=== PATIENT | male | born 1970 | race Caucasian/White ===

== ENCOUNTER → 2018-12-13 12:02 | Outpatient (CLI) | payer OTHER, SELFPAY ==
[2018-12-13 13:27] LABS: Alanine Aminotransferase 62 IU/L (21-72); Albumin 4.6 g/dL (3.5-5.0); Albumin Globulin Ratio 1.4 (1.0-2.8); Alkaline Phosphatase 95 U/L (38-126); Aspartate Aminotransferase 35 IU/L (17-59); BUN Creatinine Ratio 11.8 (6-22); Bilirubin Total 0.3 mg/dL (0.2-1.3); Blood Urea Nitrogen 13 mg/dL (9-20); Calcium 9.3 mg/dL (8.4-10.2); Carbon Dioxide 28 mmol/L (22-32); Chloride 101 mmol/L (98-107); Estimated Glomerular Filt Rate > 60.0 mL/min (>60); Globulin 3.2 g/dL (1.7-4.1); Glucose 85 mg/dL (70-100); HEMOLYSIS 18 (0-50); Potassium 4.8 mmol/L (3.4-5.1); Sodium 139 mmol/L (137-145); Total Protein 7.8 g/dL (6.3-8.2)
[2018-12-13 13:56] LABS: Thyroid Stimulating Hormone 1.13 uIU/mL (0.47-4.68)
== END ==
PROVIDERS: PCP Internal Medicine; Visit Provider Internal Medicine
DX: E29.1 Testicular hypofunction (principal); I10 Essential (primary) hypertension
CPT/HCPCS: 36415; 80053; 84439; 84443

== ENCOUNTER → 2020-06-11 10:28 | Outpatient (CLI) | payer OTHER, SELFPAY ==
[2020-06-11 11:45] LABS: 585 Gram Check PAS; Dizziness NO; Postdiastolic BP 98; Postsystolic BP 156; Prediastolic 108; Presystolic 193; Pulse 89; Site of phlebotomy RAC; Swelling NO; Therapeutic Phleb Comment NO COMMENT; Zero Check Sebra Scale PASS
== END ==
PROVIDERS: PCP Internal Medicine; Referring Provider General Practice; Visit Provider General Practice
DX: D75.1 Secondary polycythemia (principal)
CPT/HCPCS: 99195

== ENCOUNTER → 2020-06-25 10:22 | Outpatient (CLI) | payer OTHER, SELFPAY ==
[2020-06-25 10:52] LABS: 585 Gram Check PASS; Dizziness NO; Postdiastolic BP 105; Postsystolic BP 186; Prediastolic 94; Presystolic 165; Pulse 96; Site of phlebotomy RAC; Swelling NO; Therapeutic Phleb Comment NO COMMENT; Zero Check Sebra Scale PASS
== END ==
PROVIDERS: PCP Internal Medicine; Referring Provider General Practice; Visit Provider General Practice
DX: D75.1 Secondary polycythemia (principal)
CPT/HCPCS: 99195

== ENCOUNTER → 2021-01-08 09:36 | Outpatient (CLI) | payer OTHER, SELFPAY ==
[2021-01-08 10:09] LABS: 585 Gram Check PASS; Dizziness NO; Postdiastolic BP 100; Postsystolic BP 184; Prediastolic 112; Presystolic 174; Pulse 82; Site of phlebotomy RAC; Swelling NO; Therapeutic Phleb Comment NO COMMENT; Zero Check Sebra Scale PASS
== END ==
PROVIDERS: PCP Internal Medicine; Referring Provider General Practice; Visit Provider General Practice
DX: D75.1 Secondary polycythemia (principal)
CPT/HCPCS: 99195

== ENCOUNTER → 2021-02-05 09:58 | Outpatient (CLI) | payer OTHER, SELFPAY ==
[2021-02-05 10:28] LABS: 585 Gram Check PASS; Dizziness NO; Postdiastolic BP 88; Postsystolic BP 138; Prediastolic 90; Presystolic 137; Pulse 95; Site of phlebotomy LAC; Swelling NO; Therapeutic Phleb Comment NO COMMENT; Zero Check Sebra Scale PASS
== END ==
PROVIDERS: PCP Internal Medicine; Referring Provider General Practice; Visit Provider General Practice
DX: D75.1 Secondary polycythemia (principal)
CPT/HCPCS: 99195

== ENCOUNTER → 2021-02-12 12:35 | Outpatient (CLI) | payer OTHER, SELFPAY ==
[2021-02-12] MEDS: COVID-19 VACC #2, MRNA(MOD) 100 MCG/0.5 ML VIAL IM (12:46)
== END ==
PROVIDERS: PCP Internal Medicine; Visit Provider Internal Medicine
DX: Z23 Encounter for immunization (principal)
CPT/HCPCS: 0012A; 91301

== ENCOUNTER 2021-05-21 20:03 | Emergency (ER) | payer OTHER, SELFPAY ==
[2021-05-21 20:10] VITALS: BP 157/102; PULSE 90; RESP 14; TEMP 36.8; O2SAT 96; BMI 34.7
--- NOTE | 2021-05-21 20:13 | DI.RAD.S_ITS ---
PROCEDURE: XR KNEE LT 3V INDICATIONS: twisted knee and felt pop, now with pain. TECHNIQUE: Three views of the knee were acquired. COMPARISON: None. FINDINGS: Bones: No fractures or dislocations. No suspicious bony lesions. Soft tissues: No joint effusion. No suspicious soft tissue calcifications. IMPRESSION: Intact left knee. Dictated by: Capri Hand M.D. on 05/21/2021 at 20:35 Approved by: Capri Hand M.D. on 05/21/2021 at 20:35
[2021-05-21 21:00] VITALS: PULSE 78; O2SAT 97
[2021-05-21 21:02] VITALS: BP 166/92; PULSE 80; O2SAT 97
--- NOTE | 2021-05-21 21:18 | ED.LOWEXIN ---
HPI - Extremity Injury (Lower) General Chief Complaint: Extremity Injury, Lower Stated Complaint: LEFT KNEE INJURY Time Seen by Provider: 05/21/21 20:57 Source: patient Mode of arrival: Wheelchair Limitations: no limitations History of Present Illness HPI Narrative: Patient is a 50-year-old male who was participating in [employer] earlier today. He states that he was sparring with another individual in during the position that he was in had a sudden onset of a pain in the outside of his left knee. He states that he felt and heard a popping sensation. Since that time he has had quite a bit of discomfort the outside of his knee. No prior injuries. Has had difficulty/inability to ambulate since that time. Related Data Previous Rx's Medication Instructions Recorded TESTOSTERONE CYPIONATE (#COLTON-C) 200 mg IM EVERY 14 DAY #1 bot 08/30/12 sertraline 100 mg tablet 100 mg PO QDAY #90 tab 12/13/18 tadalafil 5 mg tablet (Cialis) 5 mg PO DAILY #90 tab 05/04/21 Allergies Allergy/AdvReac Type Severity Reaction Status Date / Time No Known Drug Allergies Allergy Verified 05/04/21 14:12 Review of Systems Constitutional Constitutional: Denies fever(s) Cardiovascular Cardiovascular: Reports system reviewed and no additional complaints, except as documented Respiratory Respiratory: Reports system reviewed and no additional complaints, except as documented Gastrointestinal Gastrointestinal: Reports system reviewed and no additional complaints, except as documented Musculoskeletal Musculoskeletal: Reports as per HPI Integumentary/Breasts Skin/Breast: Reports system reviewed and no additional complaints, except as documented Neurologic Neurologic: Reports system reviewed and no additional complaints, except as documented Hematologic/Lymphatic On Anticoagulants: No Allergic/Immunologic Allergic/Immunologic: Reports system reviewed and no additional complaints, except as documented Patient History Medical History BPH w urinary obs/LUTS Depression (10/01/15) Hypogonadism in male (10/01/15) Microscopic hematuria Surgical History History of circumcision Status post appendectomy Family History Father Hearing impairment Social History marital status: number of children: 1 occupational status: employed Smoking Status: Never smoker alcohol intake: current caffeine: Yes Smoking Status: Never smoker alcohol intake frequency: a few times a month Substance Use Type: does not use Exam Initial Vital Signs Initial Vital Signs: Vital Signs Temperature 98.2 F 05/21/21 20:10 Pulse Rate 90 05/21/21 20:10 Respiratory Rate 14 05/21/21 20:10 Blood Pressure 157/102 H 05/21/21 20:10 Pulse Oximetry 96 05/21/21 20:10 Const General: cooperative and healthy appearing [facility] Head: normal to inspection and normocephalic Resp Effort & Inspection: normal respiratory effort Cardio Rate: regular rate Skin General: no rashes or lesions noted Neuro General: patient alert and patient awake Sensory Exam: no sensory deficits noted Extrem Other: Left hip left ankle and left foot unremarkable. Patient has tenderness to palpation along the lateral aspect of the left knee. No tenderness along the medial joint line. No tenderness along the hamstring tendon. Patient can do a straight leg raise. No tenderness along the quadriceps/patella tendon. His ACL MCL PCL and LCL are all intact with functional testing however he does seem to be guarding quite a bit. Psych Appearance: grossly normal and well kempt Procedures Orthopedic Splinting/Casting Injury #1: Side: left Lower Extremity Injury Location: knee Lower Extremity Immobilizer: knee immobilizer Other Orthopedic Equipment: crutches Post splinting neuro exam: intact Post splinting vascular exam: intact Placed by: Nursing Course Orders Ordered: ED Orders 05/21/21 20:13 XR knee LT 3V Stat Discontinued Medications Hydrocodone Bitart/Acetaminophen (Hydrocodone/Acet 5/325 Tablet) 1 tab PO NOW ONE Stop: 05/21/21 21:32 Last Admin: 05/21/21 21:35 Dose: 1 tab Documented by: ADIS Vital Signs Vital signs: Vital Signs - 8 hr 05/21/21 20:10 05/21/21 21:00 05/21/21 21:02 Temperature 98.2 F Pulse Rate 90 78 80 Respiratory Rate 14 Blood Pressure 157/102 H 166/92 H Pulse Oximetry 96 97 97 05/21/21 21:30 05/21/21 21:31 Temperature Pulse Rate 83 76 Respiratory Rate Blood Pressure 172/82 H Pulse Oximetry 97 97 MDM - Extremity Injury (Lower) Imaging Data Extremity x-ray #1: Radiologist's Impression: [address] [id number] ReportSigned Patient: Drew Carter [facility] [place]#: [id number]: 1970Acct:[id number]/Sex: 50 / MDate of Service: 05/21/21Loc: EDAccession Number: [id number] Procedure: XR knee LT 3V Ordering Provider: Wellington Rodriguez D.O. PROCEDURE: XR KNEE LT 3V INDICATIONS: twisted knee and felt pop, now with pain. TECHNIQUE: Three views of the knee were acquired. COMPARISON: None. FINDINGS: Bones: No fractures or dislocations. No suspicious bony lesions. Soft tissues: No joint effusion. No suspicious soft tissue calcifications. IMPRESSION: Intact left knee. Dictated by: Capri Hand M.D. on 05/21/2021 at 20:35 Approved by: Capri Hand M.D. on 05/21/2021 at 20:35 [facility] Narrative Medical decision making narrative: Patient x-ray shows no signs of fracture. He is neurovascularly intact. The major ligaments in his knees do seem to be intact however this may be skewed because he is guarding quite a bit. I discussed the findings with him. The plan will be is to place him in a knee immobilizer given crutches. He can walk because there are no fractures noted on the x-rays. We also discussed other measures to include keeping his knee elevated and keeping ice over his knee. If his symptoms improve over the next couple days he can discard the knee immobilizer in the crutches as tolerated however if his symptoms continue he will contact his primary doctor to discuss further workup. He was given return precautions. He expressed understanding agreement. Discharge Plan Departure Patient Disposition: Home Clinical Impression: Injury of knee, left Instructions: How to Use Crutches, How To Perform RICE (Rest, Ice, Compress, Elevate), DI for Knee Pain Activity Restrictions/Additional Instructions: There were no fractures noted on the x-ray so you can walk on your leg as tolerated. Use the knee immobilizer and crutches like we discussed. You can take the knee immobilizer off to shower and to sleep at night. Recommend you contact your primary doctor for follow-up especially if your symptoms have not improved within the next week to 10 days. You can take Tylenol/ibuprofen for any discomfort. Return to the emergency department for any new or worsening symptoms Prescriptions: No Action TESTOSTERONE CYPIONATE (#COLTON-C) 200 mg IM EVERY 14 DAY Qty: 1 RF: 0 sertraline 100 mg tablet 100 mg PO QDAY Qty: 90 RF: 3 tadalafil [Cialis] 5 mg tablet 5 mg PO DAILY Qty: 90 RF: 3 Referrals: Ashley Finch MD [Primary Care Provider] -
[2021-05-21 21:30] VITALS: PULSE 83; O2SAT 97
[2021-05-21 21:31] VITALS: BP 172/82; PULSE 76; O2SAT 97
[2021-05-21] MEDS: HYDROCODONE/ACET 5/325 TABLET 1 TAB PO (21:35)
== END 2021-05-21 21:43 | disposition home or self-care (01) ==
PROVIDERS: Emergency Provider Emergency Medicine; PCP Internal Medicine
DX: S89.92XA Unspecified injury of left lower leg, initial encounter (principal); Y93.75 Activity, martial arts
CPT/HCPCS: 73562; 99283; 99284

== ENCOUNTER → 2021-06-19 08:26 | Outpatient (CLI) | payer OTHER, SELFPAY ==
--- NOTE | 2021-06-19 08:28 | DI.MRI.S_ITS ---
PROCEDURE: MR KNEE LT WO CON INDICATIONS: Unspecified injury of left lower leg, subsequent e TECHNIQUE: Noncontrast sagittal PD fast spin echo and T2 fast spin echo with fat saturation, sagittal 3-D FLASH with fat saturation; coronal T1 spin echo and PD fast spin echo with fat saturation, and axial PD fast spin echo with fat saturation through the knee. COMPARISON: [facility], CR, XR KNEE LT 3V, 05/21/2021, 20:13. FINDINGS: Menisci: Medial meniscus: Intact. Lateral meniscus: Intact. Cruciate ligaments: Anterior cruciate ligament: Intact. Posterior cruciate ligament: Intact although there is some intrasubstance signal change raising possibility of low-grade sprain.. Medial structures: The medial collateral ligament: Intact although adjacent soft tissue edema, next to the proximal segment could reflect low-grade sprain. Semimembranosus tendon: Intact Visualized pes anserinus tendons: Intact. Bursal fluid: none. Lateral structures: The lateral collateral ligament intact. Biceps femoris tendon appears intact. Popliteus tendon grossly unremarkable. Iliotibial band appears intact. Anterior structures: Quadriceps tendon: Intact. Medial patellofemoral ligament: Intact. Lateral patellofemoral ligament: Intact. Patellar tendon: Mild tendinopathy. Anterior soft tissues: Prepatellar and superficial infrapatellar subcutaneous edema/fluid. Deep infrapatellar region: Normal. Bones and cartilage: Marrow: Marrow edema suggestive of acute contusion involving the posteromedial femoral condyle. No discrete fracture line identified. Mild edema involving the popliteus muscle suggestive of low-grade strain Medial compartment: No focal chondral defect. Lateral compartment: No focal chondral defect. Patellofemoral compartment: No focal chondral defect. Joint space: Effusion: Large joint effusion. Prominent medial patellar plica is seen, for example image 10/6. There is also incidentally noted ligamentum mucosum within Hoffa's fat pad. There is mild adjacent soft tissue edema, technically nonspecific and age indeterminate. Popliteal fossa: No Barton's cyst. Loose bodies: None. IMPRESSION: Small acute marrow contusion involving the posteromedial femoral condyle. Large joint effusion. Possible low-grade sprain of the proximal medial collateral ligament. Incidentally noted medial patellar plica and ligamentum mucosum as above. Mild edema involving the ligamentum mucosum however technically age unknown. Recommend correlation to clinical exam findings to determine the actual significance. Low-grade strain of the popliteus muscle. Mild sprain of the posterior cruciate ligament. Dictated by: Brannon Jasso M.D. on 06/22/2021 at 9:49 Approved by: Brannon Jasso M.D. on 06/22/2021 at 10:10
== END ==
PROVIDERS: PCP Internal Medicine; Referring Provider Internal Medicine; Visit Provider Internal Medicine
DX: S80.02XA Contusion of left knee, initial encounter (principal); S83.522A Sprain of posterior cruciate ligament of left knee, initial encounter; S76.812A Strain of other specified muscles, fascia and tendons at thigh level, left thigh, initial encounter; M25.462 Effusion, left knee
CPT/HCPCS: 73721

== ENCOUNTER → 2022-04-19 06:31 | Outpatient (CLI) | payer BC, SELFPAY ==
--- NOTE | 2022-04-19 | DI.US.S_ITS ---
PROCEDURE: US SCROTUM INDICATIONS: TESTICULAR PAIN TECHNIQUE: Real-time scanning was performed of the scrotum and testicles, with image documentation. Color and pulse Doppler interrogation was performed of both testicles. COMPARISON: None. FINDINGS: Right: Testicle is normal in size at 4.3 x 3.6 x 1.9 cm, and homogenous in echotexture. Epididymis is normal in overall size and morphology. Small hydrocele. No varicoceles. Overlying scrotal skin is normal in thickness. Left: Testicle is normal in size at 4.1 x 2.9 x 2.2 cm, and homogeneous in echotexture. Epididymis is normal in overall size and morphology. Small 4.2 by 3.7 x 3.1 centimeter left epididymal head cyst. Small hydrocele. No varicoceles. Overlying scrotal skin is normal in thickness. Doppler: Color and pulse Doppler demonstrate normal and symmetric arterial flow in both testicles. IMPRESSION: 1. No evidence of testicular torsion. Please note ultrasound cannot exclude intermittent testicular torsion. 2. Small bilateral hydroceles. 3. Small left epididymal head cyst. Dictated by: Marla Oreilly MD, PhD on 04/19/2022 at 14:39 Approved by: Marla Oreilly MD, PhD on 04/19/2022 at 14:40
== END ==
PROVIDERS: PCP Internal Medicine; Referring Provider Internal Medicine; Visit Provider Internal Medicine
DX: N50.819 Testicular pain, unspecified (principal); N43.3 Hydrocele, unspecified; N50.3 Cyst of epididymis
CPT/HCPCS: 76870

== ENCOUNTER → 2022-05-21 07:56 | Outpatient (CLI) | payer BC, SELFPAY ==
[2022-05-21 10:28] LABS: Prostate Specific Antigen 0.296 ng/mL (0.10-4.00)
[2022-05-22 13:04] LABS: PSA Free % 26.7 % (.); PSA, Total 0.3 ng/mL (0.0-4.0)
[2022-05-31 08:12] LABS: Percent Free Testosterone 2.68 % (1.50-4.20); Testosterone Free 2.18 ng/dL (5.00-21.00); Testosterone Total 81.4 ng/dL (264.0-916.0)
== END ==
PROVIDERS: PCP Internal Medicine; Referring Provider Specialist; Visit Provider Specialist
DX: R97.20 Elevated prostate specific antigen [PSA] (principal)
CPT/HCPCS: 36415; 84153; 84154; 84402; 84403

== ENCOUNTER → 2022-06-10 08:21 | Outpatient (CLI) | payer BC, SELFPAY ==
[2022-06-10 10:41] LABS: Prolactin 9.9 ng/mL (3.7-17.9)
[2022-06-10 11:06] LABS: Follicle Stimulating Hormone 6.52 mIU/mL; Luteinizing Hormone 4.16 mIU/mL
[2022-06-19 20:33] LABS: Testosterone % Fr + Wkly bound 30.3 % (9.0-46.0); Testosterone Fr+Wkly bound 26.5 ng/dL (40.0-250.0); Testosterone, Total 87.6 ng/dL (264.0-916.0)
== END ==
PROVIDERS: PCP Internal Medicine; Referring Provider Specialist; Visit Provider Specialist
DX: E29.1 Testicular hypofunction (principal); N13.8 Other obstructive and reflux uropathy; N40.1 Benign prostatic hyperplasia with lower urinary tract symptoms; N43.41 Spermatocele of epididymis, single; R31.29 Other microscopic hematuria
CPT/HCPCS: 36415; 83001; 83002; 84146; 84403

== ENCOUNTER → 2022-11-04 08:29 | Outpatient (CLI) | payer BC, SELFPAY ==
[2022-11-04 09:43] LABS: Add Manual Diff / Slide Review NO; Basophils Absolute Auto 0 /uL (0-100); Basophils Percent Auto 0.4 % (0-2); Eosinophils Absolute Auto 100 /uL (0-450); Eosinophils Percent Auto 1.7 % (2-4); Hematocrit 49.2 % (41-53); Hemoglobin 15.9 g/dL (13.5-17.5); Lymphocytes Absolute Auto 1200 /uL (1100-4500); Lymphocytes Percent Auto 19.1 % (25-40); Mean Corpuscular HGB Conc 32.3 % (30-36); Mean Corpuscular Hemoglobin 27.1 PG (26-34); Mean Corpuscular Volume 83.8 fL (80-100); Monocytes Absolute Auto 400 /uL (0-900); Monocytes Percent Auto 6.6 % (3-14); Neutrophils Absolute Auto 4700 /uL (1500-7000); Neutrophils Percent Auto 72.2 % (50-75); Platelet Count 168 X10^3/uL (150-400); Red Blood Cell Count 5.87 X10^6/uL (4.5-5.9); Red Cell Distribution Width 17.1 % (11.6-14.8); White Blood Cell Count 6.5 X10^3/uL (4.5-11.0)
[2022-11-08 07:37] LABS: PSA, Total 0.4 ng/mL (0.0-4.0)
[2022-11-09 08:22] LABS: Testosterone % Fr + Wkly bound 42.5 % (9.0-46.0); Testosterone Fr+Wkly bound 150.4 ng/dL (40.0-250.0); Testosterone, Total 353.9 ng/dL (264.0-916.0)
== END ==
PROVIDERS: PCP Internal Medicine; Referring Provider Specialist; Visit Provider Specialist
DX: N13.8 Other obstructive and reflux uropathy (principal); N40.1 Benign prostatic hyperplasia with lower urinary tract symptoms; E29.1 Testicular hypofunction; N43.41 Spermatocele of epididymis, single; R31.29 Other microscopic hematuria
CPT/HCPCS: 36415; 84153; 84154; 84403; 85025

== ENCOUNTER → 2023-02-06 09:44 | Outpatient (CLI) | payer BC, SELFPAY ==
[2023-02-06 10:04] LABS: Add Manual Diff / Slide Review NO; Basophils Absolute Auto 100 /uL (0-100); Basophils Percent Auto 0.6 % (0-2); Eosinophils Absolute Auto 100 /uL (0-450); Eosinophils Percent Auto 1.1 % (2-4); Hematocrit 49.2 % (41-53); Hemoglobin 16.4 g/dL (13.5-17.5); Lymphocytes Absolute Auto 1500 /uL (1100-4500); Lymphocytes Percent Auto 15.4 % (25-40); Mean Corpuscular HGB Conc 33.3 % (30-36); Mean Corpuscular Hemoglobin 28.6 PG (26-34); Mean Corpuscular Volume 85.8 fL (80-100); Monocytes Absolute Auto 600 /uL (0-900); Monocytes Percent Auto 6.1 % (3-14); Neutrophils Absolute Auto 7300 /uL (1500-7000); Neutrophils Percent Auto 76.8 % (50-75); Platelet Count 185 X10^3/uL (150-400); Red Blood Cell Count 5.74 X10^6/uL (4.5-5.9); Red Cell Distribution Width 14.5 % (11.6-14.8); White Blood Cell Count 9.6 X10^3/uL (4.5-11.0)
[2023-02-06 10:21] LABS: Amount to Collect in grams 576 g; Amount to Collect in mL 500 mL
[2023-02-06 10:50] LABS: Therapeutic Phleb Consent Chec Consent signed @ reg
[2023-02-06 10:51] LABS: 585 Gram Check PASS; Patient Weight <110 lb NO; Zero Check Sebra Scale PASS
[2023-02-06 10:52] LABS: Prediastolic 87; Presystolic 151; Pulse 83; Temperature 98.8; Therapeutic Phleb Start Time 1030
[2023-02-06 10:53] LABS: Amount Collected in g 576; Amount Collected mL calc 500 mL; Dizziness N; Postdiastolic BP 87; Postsystolic BP 149; Site of phlebotomy Right antecubital; Swelling N; Therapeutic Phleb Comment Y; Therapeutic Phleb Stop Time 1040
== END ==
PROVIDERS: PCP Internal Medicine; Referring Provider General Practice; Visit Provider General Practice
DX: E83.119 Hemochromatosis, unspecified (principal)
CPT/HCPCS: 36415; 85025; 99195

== ENCOUNTER → 2023-03-31 08:05 | Outpatient (CLI) | payer BC, SELFPAY ==
[2023-03-31 09:14] LABS: Add Manual Diff / Slide Review NO; Basophils Absolute Auto 0 /uL (0-100); Basophils Percent Auto 0.4 % (0-2); Eosinophils Absolute Auto 100 /uL (0-450); Hematocrit 49.6 % (41-53); Hemoglobin 16.6 g/dL (13.5-17.5); Lymphocytes Absolute Auto 1400 /uL (1100-4500); Lymphocytes Percent Auto 21.6 % (25-40); Mean Corpuscular HGB Conc 33.5 % (30-36); Mean Corpuscular Hemoglobin 27.7 PG (26-34); Mean Corpuscular Volume 82.6 fL (80-100); Monocytes Absolute Auto 400 /uL (0-900); Monocytes Percent Auto 5.7 % (3-14); Neutrophils Absolute Auto 4500 /uL (1500-7000); Neutrophils Percent Auto 70.3 % (50-75); Platelet Count 171 X10^3/uL (150-400); Red Cell Distribution Width 15.1 % (11.6-14.8); White Blood Cell Count 6.4 X10^3/uL (4.5-11.0)
[2023-03-31 10:00] LABS: Prostate Specific Antigen 0.638 ng/mL (0.10-4.00)
[2023-04-07 07:12] LABS: Testosterone % Fr + Wkly bound 54.7 % (9.0-46.0); Testosterone, Total 435.1 ng/dL (264.0-916.0)
== END ==
PROVIDERS: PCP Internal Medicine; Referring Provider Specialist; Visit Provider Specialist
DX: E29.1 Testicular hypofunction (principal); R31.29 Other microscopic hematuria; N13.8 Other obstructive and reflux uropathy; N40.1 Benign prostatic hyperplasia with lower urinary tract symptoms
CPT/HCPCS: 36415; 84153; 84403; 85025

== ENCOUNTER → 2023-08-25 13:19 | Outpatient (CLI) | payer BC, SELFPAY ==
[2023-08-25 14:04] LABS: Add Manual Diff / Slide Review NO; Basophils Absolute Auto 0 /uL (0-100); Basophils Percent Auto 0.7 % (0-2); Eosinophils Absolute Auto 100 /uL (0-450); Eosinophils Percent Auto 1.7 % (2-4); Hematocrit 50.8 % (41-53); Hemoglobin 17.1 g/dL (13.5-17.5); Lymphocytes Absolute Auto 1800 /uL (1100-4500); Lymphocytes Percent Auto 23.6 % (25-40); Mean Corpuscular HGB Conc 33.6 % (30-36); Mean Corpuscular Hemoglobin 28.4 PG (26-34); Mean Corpuscular Volume 84.7 fL (80-100); Monocytes Absolute Auto 500 /uL (0-900); Monocytes Percent Auto 6.2 % (3-14); Neutrophils Absolute Auto 5100 /uL (1500-7000); Neutrophils Percent Auto 67.8 % (50-75); Platelet Count 164 X10^3/uL (150-400); Red Cell Distribution Width 16.4 % (11.6-14.8); White Blood Cell Count 7.5 X10^3/uL (4.5-11.0)
[2023-08-25 14:46] LABS: Prostate Specific Antigen 0.658 ng/mL (0.10-4.00)
[2023-09-01 07:18] LABS: Testosterone % Fr + Wkly bound 48.7 % (9.0-46.0); Testosterone, Total 513.3 ng/dL (264.0-916.0)
== END ==
PROVIDERS: PCP Internal Medicine; Referring Provider Specialist; Visit Provider Specialist
DX: E29.1 Testicular hypofunction (principal); N40.1 Benign prostatic hyperplasia with lower urinary tract symptoms; N13.8 Other obstructive and reflux uropathy
CPT/HCPCS: 36415; 84153; 84403; 85025

== ENCOUNTER → 2023-08-30 10:39 | Outpatient (CLI) | payer BC, SELFPAY ==
[2023-08-30 11:22] LABS: Hematocrit 49.8 % (41-53); Hemoglobin 16.7 g/dL (13.5-17.5)
[2023-08-30 12:13] LABS: 585 Gram Check PASS; Amount Collected in g 585 g; Amount Collected mL calc 508 mL; Patient Weight <110 lb NO; Postdiastolic BP 90 mmHg; Postsystolic BP 153 mmHg; Prediastolic 90 mmHg; Presystolic 159 mmHg; Pulse 85 bpm; Site of phlebotomy Right antecubital; Temperature 98.5; Therapeutic Phleb Consent Chec Consent signed @ reg; Therapeutic Phleb Start Time 1130; Therapeutic Phleb Stop Time 1145; Zero Check Sebra Scale PASS
== END ==
PROVIDERS: PCP Internal Medicine; Referring Provider General Practice; Visit Provider General Practice
DX: D45 Polycythemia vera (principal)
CPT/HCPCS: 85014; 85018; 99195

== ENCOUNTER → 2024-02-09 10:34 | Outpatient (CLI) | payer BC, SELFPAY ==
[2024-02-09 12:43] LABS: Hematocrit 49.4 % (41-53); Hemoglobin 16.5 g/dL (13.5-17.5); Mean Corpuscular HGB Conc 33.5 % (30-36); Mean Corpuscular Hemoglobin 28.9 PG (26-34); Mean Corpuscular Volume 86.1 fL (80-100); Platelet Count 151 X10^3/uL (150-400); Red Blood Cell Count 5.73 X10^6/uL (4.5-5.9); Red Cell Distribution Width 16.1 % (11.6-14.8); White Blood Cell Count 6.7 X10^3/uL (4.5-11.0)
[2024-02-09 14:03] LABS: Prostate Specific Antigen 0.543 ng/mL (0.10-4.00)
== END ==
PROVIDERS: PCP Internal Medicine; Referring Provider Specialist; Visit Provider Specialist
DX: E29.1 Testicular hypofunction (principal); R31.29 Other microscopic hematuria; N40.1 Benign prostatic hyperplasia with lower urinary tract symptoms; N13.8 Other obstructive and reflux uropathy
CPT/HCPCS: 36415; 84153; 84403; 85027

== ENCOUNTER → 2024-06-18 10:02 | Outpatient (CLI) | payer BC, SELFPAY ==
[2024-06-18 10:33] LABS: Hematocrit 50.7 % (41-53); Hemoglobin 16.9 g/dL (13.5-17.5)
[2024-06-18 11:29] LABS: 585 Gram Check PASS; Amount Collected in g 585 g; Amount Collected mL calc 508 mL; Patient Weight <110 lb NO; Postdiastolic BP 94 mmHg; Postsystolic BP 164 mmHg; Prediastolic 96 mmHg; Presystolic 152 mmHg; Pulse 92 bpm; Site of phlebotomy Left antecubital; Temperature 98.1; Therapeutic Phleb Consent Chec Consent signed @ reg; Therapeutic Phleb Start Time 1110; Therapeutic Phleb Stop Time 1130; Zero Check Sebra Scale PASS
== END ==
PROVIDERS: PCP Internal Medicine; Referring Provider General Practice; Visit Provider General Practice
DX: D45 Polycythemia vera (principal)
CPT/HCPCS: 36415; 85014; 85018; 99195

== ENCOUNTER → 2024-07-02 10:49 | Outpatient (CLI) | payer BC, SELFPAY ==
[2024-07-02 11:19] LABS: Hematocrit 48.2 % (41-53); Hemoglobin 16.2 g/dL (13.5-17.5)
[2024-07-02 11:51] LABS: 585 Gram Check PASS; Patient Weight <110 lb NO; Prediastolic 98 mmHg; Presystolic 153 mmHg; Pulse 82 bpm; Temperature 98.2; Therapeutic Phleb Consent Chec Consent signed @ reg; Zero Check Sebra Scale PASS
[2024-07-02 11:52] LABS: Amount Collected in g 585 g; Amount Collected mL calc 508 mL; Postdiastolic BP 94 mmHg; Postsystolic BP 168 mmHg; Site of phlebotomy Right antecubital; Therapeutic Phleb Start Time 1130; Therapeutic Phleb Stop Time 1145
== END ==
LOC: LAB 10:50
PROVIDERS: PCP Internal Medicine; Referring Provider General Practice; Visit Provider General Practice
DX: D45 Polycythemia vera (principal)
CPT/HCPCS: 36415; 85014; 85018; 99195

== ENCOUNTER → 2024-12-12 10:36 | Outpatient (CLI) | payer BC, SELFPAY ==
[2024-12-12 11:09] LABS: Hematocrit 51.2 % (41-53); Hemoglobin 16.3 g/dL (13.5-17.5)
[2024-12-12 11:30] LABS: 585 Gram Check PASS; Amount Collected in g 585 g; Amount Collected mL calc 508 mL; Patient Weight <110 lb NO; Prediastolic 92 mmHg; Presystolic 157 mmHg; Pulse 94 bpm; Site of phlebotomy Right antecubital; Temperature 98.1; Therapeutic Phleb Consent Chec Consent signed @ reg; Therapeutic Phleb Start Time 1120; Therapeutic Phleb Stop Time 1130; Zero Check Sebra Scale PASS
[2024-12-12 11:31] LABS: Postdiastolic BP 98 mmHg; Postsystolic BP 172 mmHg
== END ==
LOC: LAB 10:44
PROVIDERS: PCP Internal Medicine; Referring Provider General Practice; Visit Provider General Practice
DX: D75.839 Thrombocytosis, unspecified (principal)
CPT/HCPCS: 85014; 85018; 99195

== ENCOUNTER → 2025-01-14 10:51 | Outpatient (CLI) | payer BC, SELFPAY ==
[2025-01-14 12:27] LABS: Hematocrit 48.2 % (41-53)
[2025-01-14 12:50] LABS: Alanine Aminotransferase 37 IU/L (<50); Albumin 4.6 g/dL (3.5-5.0); Albumin Globulin Ratio 1.7 (1.0-2.8); Alkaline Phosphatase 113 U/L (38-126); Aspartate Aminotransferase 30 IU/L (17-59); BUN Creatinine Ratio 17.7 (6-22); Bilirubin Total 0.5 mg/dL (0.2-1.3); Blood Urea Nitrogen 22 mg/dL (9-20); Calcium 9.7 mg/dL (8.4-10.2); Carbon Dioxide 22 mmol/L (22-32); Chloride 107 mmol/L (98-107); Estimated Glomerular Filt Rate > 60 mL/min (>60); Globulin 2.7 g/dL (1.7-4.1); Glucose 90 mg/dL (70-100); HEMOLYSIS < 15 (0-50); Sodium 140 mmol/L (137-145); Total Protein 7.3 g/dL (6.3-8.2)
[2025-01-14 13:15] LABS: Prostate Specific Antigen 0.605 ng/mL (0.10-4.00)
[2025-01-14 13:17] LABS: Testosterone 309 ng/dL (71.8-623)
== END ==
PROVIDERS: Urology; PCP Internal Medicine; Referring Provider Internal Medicine; Visit Provider Internal Medicine
DX: R97.20 Elevated prostate specific antigen [PSA] (principal); E29.1 Testicular hypofunction; R31.29 Other microscopic hematuria
CPT/HCPCS: 36415; 80053; 84153; 84403; 85014

== ENCOUNTER → 2025-01-23 10:41 | Outpatient (CLI) | payer BC, SELFPAY ==
[2025-01-23 11:25] LABS: Hemoglobin 16.3 g/dL (13.5-17.5)
[2025-01-23 12:32] LABS: 585 Gram Check PASS; Amount Collected in g 585 g; Amount Collected mL calc 508 mL; Patient Weight <110 lb NO; Prediastolic 92 mmHg; Presystolic 154 mmHg; Pulse 87 bpm; Site of phlebotomy Right antecubital; Temperature 97.8; Therapeutic Phleb Consent Chec Consent signed @ reg; Therapeutic Phleb Start Time 1130; Therapeutic Phleb Stop Time 1140; Zero Check Sebra Scale PASS
[2025-01-23 12:33] LABS: Postdiastolic BP 80 mmHg; Postsystolic BP 138 mmHg
== END ==
PROVIDERS: PCP Internal Medicine; Referring Provider General Practice; Visit Provider General Practice
DX: D75.839 Thrombocytosis, unspecified (principal)
CPT/HCPCS: 85014; 85018; 99195

== ENCOUNTER → 2025-03-06 10:36 | Outpatient (CLI) | payer BC, SELFPAY ==
[2025-03-06 11:08] LABS: Hematocrit 48.6 % (41-53); Hemoglobin 15.9 g/dL (13.5-17.5)
[2025-03-06 11:32] LABS: 585 Gram Check PASS; Patient Weight <110 lb NO; Prediastolic 98 mmHg; Presystolic 183 mmHg; Pulse 94 bpm; Therapeutic Phleb Consent Chec Consent signed @ reg; Zero Check Sebra Scale PASS
[2025-03-06 11:33] LABS: Amount Collected in g 585 g; Amount Collected mL calc 508 mL; Postdiastolic BP 99 mmHg; Postsystolic BP 159 mmHg; Site of phlebotomy Left antecubital; Therapeutic Phleb Start Time 1115; Therapeutic Phleb Stop Time 1130
== END ==
PROVIDERS: PCP Internal Medicine; Referring Provider General Practice; Visit Provider General Practice
DX: D45 Polycythemia vera (principal)
CPT/HCPCS: 36415; 85014; 85018; 99195

== ENCOUNTER 2025-03-24 11:40 | Day surgery (SDC) | payer BC, SELFPAY ==
[2025-03-24 12:02] VITALS: BP 158/97; PULSE 105; RESP 18; TEMP 37.1; O2SAT 94
[2025-03-24] MEDS: LACTATED RINGERS 1,000 ML 84 ML IV (12:10)
--- NOTE | 2025-03-24 13:00 | PM.HP.IH.1 ---
History of Present Illness History of Present Illness Date Patient Seen: 03/24/25 Chief complaint: Colonoscopy [facility] Medical History (Updated 01/28/25 @ 14:50 by Vinay Haddad MD) Nocturia Spermatocele of epididymis, single Microscopic hematuria BPH w urinary obs/LUTS Hypogonadism in male (10/01/15) Depression (10/01/15) Surgical History History of circumcision Status post appendectomy Family History Father Hearing impairment Social History marital status: number of children: 1 occupational status: employed Smoking Status: Never smoker alcohol intake: current caffeine: Yes Meds Home Medications and Allergies Home Medications ?Medication ?Instructions ?Recorded ?Confirmed ?Type tadalafil 5 mg tablet 5 mg PO DAILY #30 tabs 01/28/25 03/24/25 Rx testosterone 2 pump topical DAILY #75 grams 01/28/25 03/24/25 Rx sertraline 50 mg tablet 50 mg PO DAILY 03/24/25 03/24/25 History Allergies Allergy/AdvReac Type Severity Reaction Status Date / Time No Known Drug Allergies Allergy Verified 03/24/25 12:11 Exam Vital Signs (past 8 hours): - 03/24/25 12:02 Temperature 98.7 F Pulse Rate 105 H Respiratory Rate 18 Blood Pressure 158/97 H Pulse Oximetry 94 Oxygen Delivery Method Room Air Oxygen Delivery Method Room Air Narrative Exam Narrative: Oropharynx free of lesions Chest clear to auscultation percussion Cardiac exam reveals no S3 or murmur Assessment & Plan Assessment & Plan narrative: For screening colonoscopy for colorectal cancer. Risks benefits and alternatives have been explained. Time-Based Coding :: [TOTAL MINUTES] spent with patient and on the chart (including review of chart, obtaining history, exam, reviewing outside data, placing orders, documenting exam and treatment plan, and counseling patient) on [DATE]. [employer] Document charge(s): No
--- NOTE | 2025-03-24 13:02 | PM.OP.COLON ---
Operative Date/Time/Diagnoses Date of procedure: 03/24/25 Time of procedure: 13:23 Pre-op diagnosis: See indication and findings Post-op diagnosis: same Procedure & Clinicians Study performed: Colonoscopy Same procedure as scheduled: Yes Procedure Notes Procedure in detail: After informed consent was obtained the patient was placed in left lateral decubitus position. The video colonoscope was introduced in the rectum slowly advanced cecum. Preparation was good. On slow withdrawal mucosa was carefully examined. The scope was removed. The patient tolerated procedure well. Blood loss none Complications none Sedation mac Findings 1. Normal colonoscopy to cecum Patient should have follow-up colonoscopy in 10 years
[2025-03-24 13:23] VITALS: BP 119/79; PULSE 100; RESP 14; TEMP 36.4; O2SAT 83
[2025-03-24 13:28] VITALS: BP 101/72; PULSE 100; RESP 17; O2SAT 94
[2025-03-24 13:32] VITALS: BP 125/85; PULSE 86; RESP 17; TEMP 36.9; O2SAT 93
== END 2025-03-24 13:49 | disposition home or self-care (01) ==
PROVIDERS: PCP Internal Medicine; Referring Provider Internal Medicine Gastroenterology; Visit Provider Internal Medicine Gastroenterology
PROC: 0DJD8ZZ Inspection of Lower Intestinal Tract, Via Natural or Artificial Opening Endoscopic (ICD-10-PCS; CPT 45378; principal; 2025-03-24 13:00)
DX: Z12.11 Encounter for screening for malignant neoplasm of colon (principal); N40.1 Benign prostatic hyperplasia with lower urinary tract symptoms; N13.9 Obstructive and reflux uropathy, unspecified; R35.1 Nocturia; F32.A Depression, unspecified
CPT/HCPCS: G0121; J2704

== ENCOUNTER → 2025-10-03 08:36 | Outpatient (CLI) | payer BC, SELFPAY ==
[2025-10-03 10:09] LABS: Prostate Specific Antigen 0.984 ng/mL (0.10-4.00)
== END ==
PROVIDERS: PCP Internal Medicine; Referring Provider Physician Assistant; Visit Provider Physician Assistant
DX: N39.0 Urinary tract infection, site not specified (principal)
CPT/HCPCS: 36415; 84153